=== PATIENT | male | born 1990 | race Caucasian/White ===

== ENCOUNTER 2021-03-17 06:58 | Emergency (ER) | payer OTHER ==
[~2021-03-17] VITALS: Ht 172.7 cm; Wt 122.5 kg
[2021-03-17] MEDS ORDERED: LIDOCAINE VISCOUS 2% UD 15 ML UDC MM ONE (08:00)
[2021-03-17] MEDS ORDERED: CEFTRIAXONE 1 G VIAL IM ONE (08:00)
[2021-03-17] MEDS ORDERED: LIDOCAINE VISCOUS 2% UD 15 ML UDC ONE (08:06)
[2021-03-17] MEDS ORDERED: LIDOCAINE /MPF 1% VIAL 5 ML VIAL ONE (08:06)
[2021-03-17] MEDS ORDERED: CEFTRIAXONE 500 MG VIAL ONE (08:06)
--- NOTE | 2021-03-17 08:20 | NUR ---
US DONE. PATIENT GIVEN MEDICATIONS.
--- NOTE | 2021-03-17 08:31 | NUR ---
URINE SENT TO LAB
[2021-03-17] MEDS ORDERED: DOXY100C2 PO (09:39)
[2021-03-17] MEDS ORDERED: IBUP-1955 PO (09:40)
--- NOTE | 2021-03-17 10:02 | NUR ---
PATIENT GIVEN REFERRALS FOR ENT AND UROLOGIST PER REQUEST. PATIENT A/OX4, AMBULATORY WITH STEADY GAIT. NO DISTRESS NOTED. COPIES OF TEST RESULTS GIVEN. Patient discharged to home in stable condition. Written and verbal after care instructions given. Patient verbalizes understanding of instruction.
[2021-03-17 10:10] VITALS: BP 128/75
== END 2021-03-17 10:11 | disposition home or self-care (01) ==
LOC: ER 06:58
DX: J02.9 Acute pharyngitis, unspecified (principal); N50.812 Left testicular pain; N50.82 Scrotal pain; A64 Unspecified sexually transmitted disease; Z88.6 Allergy status to analgesic agent; Z88.5 Allergy status to narcotic agent
CPT/HCPCS: 76870; 87070; 87491; 87591; 87880; 96372; 99284; J0696; J3490; 86403-TC